=== PATIENT | female | born 1985 | race Caucasian/White ===

== ENCOUNTER 2017-09-20 11:44 | Outpatient (CLI) | payer OTHER ==
[2017-09-20 12:42] LABS: MICROSCOPIC INDICATED
== END 2017-09-20 15:03 | disposition home or self-care (01) ==
LOC: LDOP 11:44
PROVIDERS: ATTEND Obstetrics & Gynecology
DX: O26.899 Other specified pregnancy related conditions, unspecified trimester (principal); Z3A.00 Weeks of gestation of pregnancy not specified
CPT/HCPCS: 36415; 59025; 81001; 82731; 87086; 99211; G0463

== ENCOUNTER 2017-10-04 23:59 | Inpatient (IN) | payer OTHER ==
[~2017-10-04] VITALS: Ht 162.6 cm; Wt 91.3 kg
[2017-10-05] MEDS ORDERED: CALCIUM GLUCONATE 4.6 MEQ/10 ML IV PRN (01:30)
[2017-10-05] MEDS ORDERED: AZITHROMYCIN 1,000 MG in SODIUM CHLORIDE 0.9% 250 ML IV ONE (01:30)
[2017-10-05] MEDS ORDERED: MAGNESIUM SULFATE PMX 4GM/100M 100 ML IVPB ONE (01:30)
[2017-10-05] MEDS ORDERED: MAGNESIUM SULFATE PMX 4GM/100M 100 ML ONE (01:47)
[2017-10-05] MEDS ORDERED: BETAMETHASONE 6 MG/ML, 5ML IM ONE (01:48)
[2017-10-05] MEDS: BETAMETHASONE 6 MG/ML, 5ML IM SCH (01:55)
[2017-10-05] MEDS ORDERED: AZITHROMYCIN 500 MG TABLET PO ONE (02:00)
[2017-10-05] MEDS: LACTATED RINGERS 1,000 ML IV PRN ×3 (02:20→23:45)
[2017-10-05] MEDS ORDERED: MAGNESIUM SULF. PMX 20GM/500ML 500 ML IV ONE ×3 (02:39→21:05)
[2017-10-05] MEDS: MAGNESIUM SULF. PMX 20GM/500ML 500 ML IV SCH ×3 (02:43→21:09)
[2017-10-05] MEDS: AMPICILLIN 2 GM in SODIUM CHLORIDE 0.9% 100 ML IV SCH ×4 (02:47→20:49)
[2017-10-05 05:15] LABS: BASOPHILS % (AUTO) 1 % (0-1); EOSINOPHILS # (AUTO) 0.03 x10^3/uL (0-0.4); EOSINOPHILS % (AUTO) 0 % (1-7); LYMPHOCYTES # (AUTO) 1.44 x10^3/uL (1-3.4); LYMPHOCYTES % (AUTO) 10 % (22-44); MD NO; MEAN CORPUSCULAR HEMOGLOBIN 31.5 pg (27.0-34.8); MEAN CORPUSCULAR HGB CONC 34.1 g/dL (32.4-35.8); MEAN CORPUSCULAR VOLUME 92.3 fL (80-100); MEAN PLATELET VOLUME 7.5 fL (7.4-10.4); MONOCYTES # (AUTO) 0.34 x10^3/uL (0.2-0.8); MONOCYTES % (AUTO) 2 % (2-9); NEUTROPHILS # (AUTO) 11.93 x10^3/uL (1.8-6.8); NEUTROPHILS % (AUTO) 86 % (42-75); PLATELET COUNT 184 x10^3/uL (130-400); RED BLOOD COUNT 4.27 x10^6/uL (3.82-5.3); RED CELL DISTRIBUTION WIDTH 13.1 % (9.6-15.2)
[2017-10-06] MEDS: BETAMETHASONE 6 MG/ML, 5ML IM SCH (01:54)
[2017-10-06] MEDS: AMPICILLIN 2 GM in SODIUM CHLORIDE 0.9% 100 ML IV SCH ×3 (01:55→18:03)
[2017-10-06] MEDS ORDERED: PRENATAL VIT/IRON/FA 1 EACH TABLET ONE (07:51)
[2017-10-06] MEDS ORDERED: DOCUSATE 100 MG CAPSULE ONE (07:51)
[2017-10-06] MEDS ORDERED: MAGNESIUM SULF. PMX 20GM/500ML 500 ML IV ONE ×2 (08:32→19:51)
[2017-10-06] MEDS: MAGNESIUM SULF. PMX 20GM/500ML 500 ML IV SCH (08:37)
[2017-10-06] MEDS: DOCUSATE 100 MG CAPSULE PO SCH (08:54)
[2017-10-06 09:16] VITALS: BP 131/71
[2017-10-06] MEDS ORDERED: PREN1TAB60 PO (09:44)
[2017-10-06] MEDS ORDERED: DOCU-131 PO (09:44)
[2017-10-06] MEDS: PRENATAL VIT/IRON/FA 1 EACH TABLET PO SCH (10:18)
[2017-10-06] MEDS ORDERED: NEWBORN KIT ONE (14:54)
[2017-10-06] MEDS ORDERED: MAGNESIUM SULF. PMX 20GM/500ML 500 ML IV SCH (14:58)
[2017-10-06] MEDS ORDERED: OXYTOCIN 30U/ 0.9% NaCL 500ML 500 ML IV SCH (15:22)
[2017-10-06] MEDS: LACTATED RINGERS 1,000 ML IV SCH (16:31)
[2017-10-06] MEDS ORDERED: DIPH,PERTUSS(ACELL),TET VAC/PF NC IM-VACC ONE (18:00)
[2017-10-07] MEDS: AMPICILLIN 2 GM in SODIUM CHLORIDE 0.9% 100 ML IV SCH (00:06)
[2017-10-07 06:07] LABS: MEAN CORPUSCULAR HEMOGLOBIN 31.5 pg (27.0-34.8); MEAN CORPUSCULAR HGB CONC 33.9 g/dL (32.4-35.8); MEAN CORPUSCULAR VOLUME 92.9 fL (80-100); MEAN PLATELET VOLUME 7.7 fL (7.4-10.4); PLATELET COUNT 184 x10^3/uL (130-400); RED BLOOD COUNT 3.72 x10^6/uL (3.82-5.3); RED CELL DISTRIBUTION WIDTH 12.9 % (9.6-15.2)
[2017-10-07 06:29] LABS: MD YES
[2017-10-07 06:30] LABS: BANDS%(MANUAL) 2 % (0-7); LYMPH#(MANUAL) 1.81 x10^3/uL (1-3.4); LYMPHS% (MANUAL) 12 % (22-44); MONOS#(MANUAL) 0.45 x10^3/uL (0.3-2.7); MONOS% (MANUAL) 3 % (2-9); NRBC % (MANUAL) 2 % (0-1); SEG#(MANUAL) 12.53 x10^3/uL (1.8-6.8); SEGS% (MANUAL) 83 % (42-75)
[2017-10-07 06:31] LABS: POLYCHROMASIA 1+
[2017-10-07 06:32] LABS: <PLATELET ESTIMATE> ADEQUATE; <PLT MORPHOLOGY> NORMAL PLT MORPH
[2017-10-07] MEDS: LACTATED RINGERS 1,000 ML IV SCH ×3 (08:22→23:05)
[2017-10-07] MEDS: PRENATAL VIT/IRON/FA 1 EACH TABLET PO SCH (09:00)
[2017-10-07] MEDS: DOCUSATE 100 MG CAPSULE PO SCH ×2 (09:00→21:00)
[2017-10-07] MEDS ORDERED: SODIUM CITRATE/CITRIC ACID 30 ML UDC ONE (09:24)
[2017-10-07] MEDS ORDERED: OXYTOCIN 30U/ 0.9% NaCL 500ML 500 ML ONE (09:24)
[2017-10-07] MEDS ORDERED: METOCLOPRAMIDE 5 MG/ML, 2ML ONE (09:24)
[2017-10-07] MEDS ORDERED: METOCLOPRAMIDE 5 MG/ML, 2ML IV ONE (10:00)
[2017-10-07] MEDS ORDERED: SODIUM CITRATE/CITRIC ACID 30 ML UDC PO ONE (10:00)
[2017-10-07] MEDS ORDERED: LACTATED RINGERS 1,000 ML IVBOLUS ONE (10:00)
[2017-10-07] MEDS ORDERED: FENTANYL PF 100 MCG/2ML ONE ×2 (11:12→11:18)
[2017-10-07] MEDS ORDERED: ONDANSETRON 2MG/ML, 2ML ONE (11:18)
[2017-10-07] MEDS ORDERED: OXYTOCIN 10 UNITS/ML, 1ML ONE (11:18)
[2017-10-07] MEDS ORDERED: CEFAZOLIN 1,000 MG ONE (11:18)
[2017-10-07] MEDS ORDERED: HYDROmorphone 2 MG/ML, 1ML ONE (11:19)
[2017-10-07] MEDS ORDERED: SODIUM CHLORIDE 0.9% PF 10ML ONE ×2 (11:20)
[2017-10-07] MEDS ORDERED: FENTANYL PF 100 MCG/2ML IV ONE (11:30)
[2017-10-07] MEDS ORDERED: NEWBORN KIT ONE (12:14)
[2017-10-07] MEDS ORDERED: MISOPROSTOL 200 MCG TABLET ONE (13:01)
[2017-10-07] MEDS: OXYTOCIN 30U/ 0.9% NaCL 500ML 500 ML IV SCH ×2 (13:05→23:05)
[2017-10-07] MEDS ORDERED: LACTATED RINGERS 1,000 ML IV SCH (13:05)
[2017-10-07] MEDS ORDERED: ONDANSETRON 2MG/ML, 2ML IV PRN (13:30)
[2017-10-07] MEDS ORDERED: MISOPROSTOL 200 MCG TABLET PR PRN (13:30)
[2017-10-07] MEDS ORDERED: morphine SULFATE 10 MG/ML, 1ML IVPush PRN (13:30)
[2017-10-07] MEDS ORDERED: DOCUSATE 100 MG CAPSULE PO PRN (13:30)
[2017-10-07 16:00] VITALS: BP 123/83
[2017-10-07] MEDS: OXYcodone/APAP 5/325MG TABLET PO PRN ×2 (16:02→21:17)
[2017-10-07 17:30] VITALS: BP 121/82
[2017-10-07] MEDS: KETOROLAC 30 MG/1 ML IV PRN (18:34)
[2017-10-07 20:50] VITALS: BP 121/72
[2017-10-07 20:50] LABS: BASOPHILS # (AUTO) 0.08 x10^3/uL (0-0.1); BASOPHILS % (AUTO) 1 % (0-1); EOSINOPHILS # (AUTO) 0.02 x10^3/uL (0-0.4); EOSINOPHILS % (AUTO) 0 % (1-7); LYMPHOCYTES # (AUTO) 1.95 x10^3/uL (1-3.4); LYMPHOCYTES % (AUTO) 13 % (22-44); MD NO; MEAN CORPUSCULAR HEMOGLOBIN 31.6 pg (27.0-34.8); MEAN CORPUSCULAR HGB CONC 33.9 g/dL (32.4-35.8); MEAN CORPUSCULAR VOLUME 93.3 fL (80-100); MEAN PLATELET VOLUME 6.8 fL (7.4-10.4); MONOCYTES # (AUTO) 0.92 x10^3/uL (0.2-0.8); MONOCYTES % (AUTO) 6 % (2-9); NEUTROPHILS # (AUTO) 12.43 x10^3/uL (1.8-6.8); NEUTROPHILS % (AUTO) 81 % (42-75); PLATELET COUNT 171 x10^3/uL (130-400); RED BLOOD COUNT 3.42 x10^6/uL (3.82-5.3); RED CELL DISTRIBUTION WIDTH 13.3 % (9.6-15.2)
[2017-10-07 23:50] VITALS: BP 113/73
[2017-10-08] MEDS: KETOROLAC 30 MG/1 ML IV PRN ×3 (00:28→12:19)
[2017-10-08] MEDS: OXYcodone/APAP 5/325MG TABLET PO PRN ×5 (03:58→21:17)
[2017-10-08 05:16] VITALS: BP 110/71
[2017-10-08 08:10] VITALS: BP 135/91
[2017-10-08] MEDS: PRENATAL VIT/IRON/FA 1 EACH TABLET PO SCH (08:36)
[2017-10-08] MEDS: DOCUSATE 100 MG CAPSULE PO SCH ×2 (08:37→21:17)
[2017-10-08 13:00] VITALS: BP 116/71
[2017-10-08] MEDS: IBUPROFEN 600 MG TABLET PO PRN (18:41)
[2017-10-08 19:30] VITALS: BP 127/77
[2017-10-09] MEDS: OXYcodone/APAP 5/325MG TABLET PO PRN ×5 (03:25→22:16)
[2017-10-09] MEDS: IBUPROFEN 600 MG TABLET PO PRN ×4 (03:25→22:17)
[2017-10-09 08:15] VITALS: BP 126/83
[2017-10-09] MEDS: DOCUSATE 100 MG CAPSULE PO SCH ×2 (08:35→22:16)
[2017-10-09] MEDS: PRENATAL VIT/IRON/FA 1 EACH TABLET PO SCH (08:35)
[2017-10-09 20:00] VITALS: BP 131/82
[2017-10-10] MEDS: OXYcodone/APAP 5/325MG TABLET PO PRN ×5 (03:19→20:25)
[2017-10-10] MEDS: IBUPROFEN 600 MG TABLET PO PRN ×2 (08:04→15:40)
[2017-10-10] MEDS: DOCUSATE 100 MG CAPSULE PO SCH ×2 (08:04→20:25)
[2017-10-10] MEDS: PRENATAL VIT/IRON/FA 1 EACH TABLET PO SCH (08:04)
[2017-10-10 08:06] VITALS: BP 149/87
[2017-10-10 15:30] VITALS: BP 136/85
[2017-10-10 20:00] VITALS: BP 140/90
[2017-10-11 00:05] VITALS: BP 133/78
[2017-10-11] MEDS: OXYcodone/APAP 5/325MG TABLET PO PRN ×3 (00:08→13:40)
[2017-10-11] MEDS: IBUPROFEN 600 MG TABLET PO PRN ×3 (00:08→13:40)
[2017-10-11] MEDS: DOCUSATE 100 MG CAPSULE PO SCH (07:26)
[2017-10-11] MEDS: PRENATAL VIT/IRON/FA 1 EACH TABLET PO SCH (07:26)
[2017-10-11 07:30] VITALS: BP 133/86
[2017-10-11] MEDS ORDERED: IBUP-1222 PO (11:45)
[2017-10-11] MEDS ORDERED: OXYC-302 PO (11:46)
== END 2017-10-11 15:12 | disposition home or self-care (01) | DRG 765 ==
LOC: LDOP 23:59 → LDIP 10-05 01:09 → 2NW 10-07 15:16
PROVIDERS: ADMIT Obstetrics & Gynecology; ATTEND Obstetrics & Gynecology
PROC: 10D00Z1 Extraction of Products of Conception, Low, Open Approach (ICD-10-PCS; principal; 2017-10-07)
DX: O42.013 Preterm premature rupture of membranes, onset of labor within 24 hours of rupture, third trimester (principal); O30.043 Twin pregnancy, dichorionic/diamniotic, third trimester; Z37.2 Twins, both liveborn; O32.1XX2 Maternal care for breech presentation, fetus 2; Z3A.35 35 weeks gestation of pregnancy
CPT/HCPCS: 36415; 76815; 83735; 85025; 86850; 86900; 87081; 88305; 90715; 96374; J0290; J0690; J0702; J1170; J1885; J2405; J3010; J2590; J2765; J3475; J7120

== ENCOUNTER → 2019-07-20 | Outpatient (CLI) | payer OTHER ==
[~2019-07-20] MED LIST: DOCU-131 PO; IBUP-1222 PO; OMNIPAQUE 350 MG/ML, 100ML BOTTLE ONE; OXYC-302 PO; PREN1TAB60 PO
== END | disposition home or self-care (01) ==
LOC: CFH 09:48
PROVIDERS: ATTEND Nurse Practitioner Family
DX: R59.0 Localized enlarged lymph nodes (principal); K76.89 Other specified diseases of liver; R10.10 Upper abdominal pain, unspecified
CPT/HCPCS: 74177; Q9967

== ENCOUNTER 2019-12-01 12:05 | Emergency (ER) | payer OTHER ==
[~2019-12-01] VITALS: Ht 162.6 cm; Wt 70.7 kg
[~2019-12-01 12:05] MED LIST changes: -OMNIPAQUE 350 MG/ML, 100ML BOTTLE ONE
[2019-12-01] MEDS ORDERED: ADENOSINE 6 MG/2 ML ONE (12:16)
[2019-12-01] MEDS ORDERED: ADENOSINE 6 MG/2 ML IVPush ONE (12:30)
[2019-12-01] MEDS ORDERED: SODIUM CHLORIDE FLUSH 10ML SYR IVF ONE (12:30)
--- NOTE | 2019-12-01 12:34 | NUR ---
PT TO ROOM 30 PER WHEELCHAIR. PT C/O PALPITATIONS AND SOB. UPON PLACEMENT OF MONITOR, HR 235. RN HAD PATIENT REMOVE FACEMASK, PUT THUMB IN MOUTH AND BLOW HARD SHE COULD. HR BEGAN TO DECREASE, NOW ST AT 109. REPEAT EKG DONE. IV PLACED WITH LAB DRAW. PT STATES FEELING MUCH BETTER AFTER HR DECREASED. PT BP NOW DOWN TO NORMAL, 120/82. PT HAS CALL LIGHT AT BEDSIDE. AT BEDSIDE.
[2019-12-01 12:43] LABS: BASOPHILS # (AUTO) 0.07 x10^3/uL (0-0.1); BASOPHILS % (AUTO) 1 % (0-1); EOSINOPHILS # (AUTO) 0.17 x10^3/uL (0-0.4); EOSINOPHILS % (AUTO) 2 % (1-7); LYMPHOCYTES # (AUTO) 3.56 x10^3/uL (1-3.4); LYMPHOCYTES % (AUTO) 32 % (22-44); MD NO; MEAN CORPUSCULAR HEMOGLOBIN 30.8 pg (27.0-34.8); MEAN CORPUSCULAR HGB CONC 33.8 g/dL (32.4-35.8); MEAN PLATELET VOLUME 7.9 fL (7.4-10.4); MONOCYTES % (AUTO) 4 % (2-9); NEUTROPHILS # (AUTO) 7.02 x10^3/uL (1.8-6.8); NEUTROPHILS % (AUTO) 63 % (42-75); PLATELET COUNT 351 x10^3/uL (130-400); RED BLOOD COUNT 5.33 x10^6/uL (3.82-5.3); RED CELL DISTRIBUTION WIDTH 12.1 % (9.6-15.2)
[2019-12-01 12:49] LABS: ALANINE AMINOTRANSFERASE 35 U/L (12-78); ALBUMIN 4.2 g/dL (3.4-5.0); ANION GAP 9 mmol/L (5-15); CHLORIDE 108 mmol/L (98-107)
--- NOTE | 2019-12-01 12:49 | NUR ---
PT IS A/O X3, FEELING MUCH BETTER. CXR COMPLETE, PT RESTING.
[2019-12-01 12:54] LABS: ALKALINE PHOSPHATASE 85 U/L (45-117); BILIRUBIN,TOTAL 0.3 mg/dL (0.2-1.0); CREATININE 1.18 mg/dL (0.55-1.02); TOTAL PROTEIN 9.4 g/dL (6.4-8.2); TROPONIN I < 0.015 ng/mL (0.000-0.045)
--- NOTE | 2019-12-01 13:26 | NUR ---
PT UP TO BR WITH STRONG STEADY GAIT. NO INCREASE OF HR WITH AMBULATION. DISCHARGE INSTRUCTIONS GIVEN TO PATIENT WITH ONE PRESCRIPTION. PT VERBALIZES UNDERSTANDING OF MEDICATION AND NEED TO FOLLOW UP WITH CARDIOLOGY. PT AMBULATES OUT OF ED PER PEDIS WITH STRONG STEADY GAIT.
[2019-12-01 13:27] VITALS: BP 118/62
== END 2019-12-01 13:31 | disposition home or self-care (01) ==
LOC: ED 12:27
DX: I47.1 Supraventricular tachycardia (principal)
CPT/HCPCS: 36415; 71045; 80053; 83605; 84484; 85025; 93005; 99285

== ENCOUNTER 2019-12-29 06:02 | Day surgery (SDC) | payer OTHER ==
[~2019-12-29] VITALS: Ht 162.6 cm; Wt 70.0 kg
[2019-12-29] MEDS ORDERED: SODIUM CHLORIDE 0.9% 1,000 ML IV SCH (06:16)
[2019-12-29] MEDS ORDERED: METO25TA35 PO (06:27)
[2019-12-29] MEDS ORDERED: MULTIVITAMIN (06:28)
[2019-12-29] MEDS ORDERED: BIRTH CONTROL PILL (06:28)
[2019-12-29 06:31] VITALS: BP 141/99
[2019-12-29 06:56] LABS: BASOPHILS # (AUTO) 0.08 x10^3/uL (0-0.1); BASOPHILS % (AUTO) 1 % (0-1); EOSINOPHILS # (AUTO) 0.17 x10^3/uL (0-0.4); EOSINOPHILS % (AUTO) 1 % (1-7); LYMPHOCYTES # (AUTO) 1.51 x10^3/uL (1-3.4); LYMPHOCYTES % (AUTO) 11 % (22-44); MD NO; MEAN CORPUSCULAR HEMOGLOBIN 31.1 pg (27.0-34.8); MEAN CORPUSCULAR HGB CONC 33.7 g/dL (32.4-35.8); MEAN CORPUSCULAR VOLUME 92.2 fL (80-100); MEAN PLATELET VOLUME 7.6 fL (7.4-10.4); MONOCYTES % (AUTO) 4 % (2-9); NEUTROPHILS # (AUTO) 11.45 x10^3/uL (1.8-6.8); NEUTROPHILS % (AUTO) 84 % (42-75); PLATELET COUNT 290 x10^3/uL (130-400); RED BLOOD COUNT 4.66 x10^6/uL (3.82-5.3); RED CELL DISTRIBUTION WIDTH 12.3 % (9.6-15.2)
[2019-12-29 07:03] LABS: ANION GAP 10 mmol/L (5-15); CALCIUM 8.3 mg/dL (8.5-10.1); CHLORIDE 107 mmol/L (98-107); CREATININE 0.77 mg/dL (0.55-1.02)
[2019-12-29] MEDS ORDERED: FENTANYL PF 100 MCG/2ML ONE (08:16)
[2019-12-29] MEDS ORDERED: LIDOCAINE 2%, 20ML ONE (08:16)
[2019-12-29] MEDS ORDERED: ADENOSINE 6 MG/2 ML ONE (08:16)
[2019-12-29] MEDS ORDERED: ISOPROTERENOL 0.2MG/ML, 5ML ONE (08:16)
[2019-12-29] MEDS ORDERED: MIDAZOLAM 1 MG/ML, 5ML ONE (08:16)
[2019-12-29] MEDS ORDERED: ATROPINE SYRINGE 0.1 MG/ML, 10ML ONE (10:06)
[2019-12-29] MEDS ORDERED: ONDANSETRON 2MG/ML, 2ML ONE ×2 (10:10→11:48)
[2019-12-29] MEDS ORDERED: ACETAMINOPHEN 325 MG TABLET ONE (11:48)
== END 2019-12-29 14:14 | disposition home or self-care (01) ==
LOC: CACL 06:02
PROVIDERS: ATTEND Internal Medicine Cardiovascular Disease
DX: I47.1 Supraventricular tachycardia (principal); Z79.899 Other long term (current) drug therapy; Z91.040 Latex allergy status
CPT/HCPCS: 36415; 71046; 80048; 84703; 85025; 93613; 93621; 93623; 93653; 99156; 99157; C1730; C1894; C2630; J0153; J0461; J2250; J2405; J3010